=== PATIENT | female | born 1960 | race Hispanic/Latino ===

== ENCOUNTER → 2025-01-17 | Day surgery (SDC) | payer MEDICARE ==
[2025-01-09 12:15] LABS: BASOPHILS % 0.5 % (0.0-1.0); EOSINOPHILS % 3.0 % (0.0-6.0); LYMPHOCYTES % 36.4 % (18.0-39.1); MONOCYTES % 9.9 % (4.4-11.3); NEUTROPHILS % 50.0 % (38.7-80.0); RED CELL DISTRIBUTION WIDTH 13.8 % (11.7-14.4)
[2025-01-09 12:49] LABS: EST GLOMERULAR FILTRATION RATE 33.0 ML/MIN (>=60)
[~2025-01-17] MED LIST: ACETAMINOPHEN/COD; ATORVASTATIN CA40 MG PO; B12 ACTIVE1000 MCG; BENICAR20 MG PO; CALCIUM; DULOXETINE HCL30 MG; EPHEDRINE SULFATE INJ 50 MG/ML VIAL ONE; FENTANYL CITRATE/PF 100MCG/2 ML INJ ONE; LIDOCAINE HCL 2% LOCAL INJ 5 ML SDV VIAL INJ ONE; LYRICA150 MG PO; PROPOFOL IV EMULSION 10 MG/ML 20 ML VIAL ONE; PROTONIX20 MG PO; SEVOFLURANE INHAL SOLN 250 ML PEN BTL ONE; TIZANIDINE HCL4 M1 PO; TRICOR48 MG PO; VASCEPA1 GM; VITAMIN D31 ML; VITAMIN E400 UNI1 PO
[2025-01-17] MEDS: GENTAMICIN 80MG/NS 100 ML 200 ML IV ONE (07:16)
[2025-01-17] MEDS: SODIUM CHLORIDE 0.9% 1000ML 1,000 ML ONE (07:16)
[2025-01-17] MEDS: CEFTRIAXONE 1 GM VIAL ONE (07:16)
[2025-01-17 09:25] VITALS: TEMP 97.2
[2025-01-17] MEDS: FENTANYL CITRATE/PF 100MCG/2 ML INJ ONE (09:39)
[2025-01-17 10:33] VITALS: BP 111/81; PULSE 78; RESP 16; O2SAT 94
== END | disposition home or self-care (01) ==
LOC: OR 06:13
PROVIDERS: ATTEND Urology
DX: R33.8 Other retention of urine (principal); N39.0 Urinary tract infection, site not specified; N32.89 Other specified disorders of bladder; N81.10 Cystocele, unspecified; N81.6 Rectocele; N36.41 Hypermobility of urethra; N95.2 Postmenopausal atrophic vaginitis; N39.41 Urge incontinence; I12.9 Hypertensive chronic kidney disease with stage 1 through stage 4 chronic kidney disease, or unspecified chronic kidney disease; N18.9 Chronic kidney disease, unspecified; E78.5 Hyperlipidemia, unspecified; J44.9 Chronic obstructive pulmonary disease, unspecified; K59.09 Other constipation; M06.9 Rheumatoid arthritis, unspecified; M19.90 Unspecified osteoarthritis, unspecified site; F41.9 Anxiety disorder, unspecified; F32.A Depression, unspecified; Z01.810 Encounter for preprocedural cardiovascular examination; Z01.812 Encounter for preprocedural laboratory examination; Z01.818 Encounter for other preprocedural examination; Z79.899 Other long term (current) drug therapy; Z87.891 Personal history of nicotine dependence
CPT/HCPCS: 36415; 51040; 52005; 71046; 74420; 80048; 85025; 87086; 93005; C1758; C1769; J0696; J1580; J2003; J2704; J3010; J7030